=== PATIENT | female | born 1995 | race African-American/Black ===

== ENCOUNTER → 2017-07-13 | Outpatient (CLI) | payer OTHER ==
[~2017-07-13] MED LIST: AMOXICILLIN500 MG PO; BACTRIM DS 8001 TA1 PO; BENADRYL25 MG PO; DEPO PROVER150 MG/M1 IM; MOTRIN800 MG PO; PROAIR HFA0.09 MG/AC INH; ZOFRAN ODT4 MG SL
== END | disposition home or self-care (01) ==
LOC: US 11:00
DX: Z34.80 Encounter for supervision of other normal pregnancy, unspecified trimester (principal); Z3A.08 8 weeks gestation of pregnancy

== ENCOUNTER → 2017-09-05 | Outpatient (CLI) | payer OTHER ==
[2017-09-07 03:06] LABS: AFP VALUE 25.8 ng/mL (.); DIA MOM 1.22 (.); DSR (BY AGE) 1 IN 1159 (.); DSR (SECOND TRIMESTER) 1 IN 763 (.); GEST. AGE ON COLLECTION DATE 16.9 WEEKS (.); GESTATIONAL AGE BASED ON Ultrasound (.); HCG MOM 1.79 (.); HCG VALUE 68353 mIU/mL (.); INSULIN DEPENDENT DIABETES No (.); MATERNAL AGE AT EDD 20.3 YEARS (.); MULTIPLE GESTATION No (.); OSBR RISK 1 IN 10000 (.); T18 RISK Not increased (.); TEST RESULTS *Screen Negative* (.); UE3 MOM 0.96 (.); UE3 VALUE 1.07 ng/mL (.); WEIGHT 120 lbs (.)
== END | disposition home or self-care (01) ==
LOC: LAB 11:19
PROVIDERS: Obstetrics & Gynecology
DX: Z33.1 Pregnant state, incidental (principal)

== ENCOUNTER → 2017-09-24 | Outpatient (CLI) | payer OTHER | END | disposition home or self-care (01) | LOC: US 10:00 | DX: Z34.92 Encounter for supervision of normal pregnancy, unspecified, second trimester (principal); Z3A.19 19 weeks gestation of pregnancy ==

== ENCOUNTER 2018-04-02 14:45 | Emergency (ER) | payer OTHER ==
[~2018-04-02] VITALS: Ht 170.1 cm; Wt 61.2 kg
[2018-04-02 15:25] LABS: BILIRUBIN NEGATIVE (NEGATIVE); BLOOD 3+ (NEGATIVE); CLARITY SL CLOUDY (CLEAR); COLOR YELLOW (YELLOW); GLUCOSE NEGATIVE (NEGATIVE); KETONE TRACE (NEGATIVE); LEUKO ESTERASE TRACE (NEGATIVE); NITRITE NEGATIVE (NEGATIVE); PH 8.5 (5.0-9.0)
[2018-04-02 15:43] LABS: BACTERIA TRACE; RBC 51-100 rbc/hpf (0-2)
[2018-04-02 16:40] LABS: BASO # 0.1 10*3/uL (0.0-0.1); BASO % 0.6 % (0.0-1.0); EOS % 9.4 % (1.0-4.0); HEMATOCRIT 38.6 % (37.0-47.0); HEMOGLOBIN 11.9 g/dl (12.0-16.0); LYMPH # 2.6 10*3/uL (1.3-4.4); LYMPH % 25.6 % (27.0-41.0); MEAN CELL VOLUME 85.2 fl (81.0-99.0); MEAN CORPUSCULAR HGB 26.3 pg (27.0-31.0); MEAN CORPUSCULAR HGB CONC 30.8 g/dl (33.0-37.0); MEAN PLATELET VOLUME 10.6 fl (9.6-12.3); MONO # 0.7 10*3/uL (0.1-1.0); MONO % 6.5 % (3.0-9.0); NEUT # 5.9 10*3/uL (2.3-7.9); NEUT % 57.8 % (47.0-73.0); PLATELET COUNT AUTOMATED 349 10*3/uL (130-400); RED BLOOD COUNT 4.53 10*6/uL (4.10-5.10); RED CELL DISTRI WIDTH 17.4 % (0-14.5); WHITE BLOOD COUNT 10.2 10*3/uL (4.8-10.8)
[2018-04-02 16:55] LABS: ALBUMIN 4.3 gm/dl (3.1-4.5); ALKALINE PHOSPHATASE 84 U/L (45-117); BUN 9 mg/dl (7-24); CHLORIDE 105 mmol/L (98-107); CREATININE 0.98 mg/dL (0.55-1.02); POTASSIUM 3.8 mmol/L (3.5-5.1); SGOT/AST 25 IU/L (3-35); SGPT/ALT 25 U/L (12-78); SODIUM 137 mmol/L (136-145); TOTAL PROTEIN 8.4 gm/dL (6.4-8.2)
[2018-04-02] MEDS ORDERED: Motrin,Rufen800 MG PO (17:13)
== END 2018-04-02 17:17 | disposition home or self-care (01) ==
LOC: ED 14:45
PROVIDERS: Nurse Practitioner
DX: O46.91 Antepartum hemorrhage, unspecified, first trimester (principal); O99.611 Diseases of the digestive system complicating pregnancy, first trimester; K92.89 Other specified diseases of the digestive system; Z3A.01 Less than 8 weeks gestation of pregnancy

== ENCOUNTER → 2018-08-03 | Outpatient (CLI) | payer OTHER ==
[~2018-08-03] MED LIST changes: +Motrin,Rufen800 MG PO
== END | disposition home or self-care (01) ==
LOC: US 13:00
DX: Z34.02 Encounter for supervision of normal first pregnancy, second trimester (principal); Z3A.16 16 weeks gestation of pregnancy

== ENCOUNTER → 2018-12-08 | Outpatient (CLI) | payer OTHER | END | disposition home or self-care (01) | LOC: US 11-21 12:30 | DX: Z34.83 Encounter for supervision of other normal pregnancy, third trimester (principal); Z3A.34 34 weeks gestation of pregnancy ==

== ENCOUNTER → 2018-12-15 | Outpatient (CLI) | payer SELFPAY | END | disposition home or self-care (01) | LOC: US 11:30 | DX: Z34.93 Encounter for supervision of normal pregnancy, unspecified, third trimester (principal); Z3A.36 36 weeks gestation of pregnancy ==

== ENCOUNTER → 2019-08-16 | Outpatient (CLI) | payer OTHER ==
[2019-08-16 16:10] LABS: BASO # 0.1 10*3/uL (0.0-0.1); BASO % 0.4 % (0.0-1.0); EOS # 0.2 10*3/uL (0.0-0.4); EOS % 1.3 % (1.0-4.0); HEMATOCRIT 28.4 % (37.0-47.0); HEMOGLOBIN 8.6 g/dl (12.0-16.0); LYMPH # 1.7 10*3/uL (1.3-4.4); LYMPH % 13.4 % (27.0-41.0); MEAN CELL VOLUME 88.8 fl (81.0-99.0); MEAN CORPUSCULAR HGB 26.9 pg (27.0-31.0); MEAN CORPUSCULAR HGB CONC 30.3 g/dl (33.0-37.0); MEAN PLATELET VOLUME 9.9 fl (9.6-12.3); MONO % 7.7 % (3.0-9.0); NEUT # 9.8 10*3/uL (2.3-7.9); NEUT % 76.1 % (47.0-73.0); PLATELET COUNT AUTOMATED 318 10*3/uL (130-400); RED CELL DISTRI WIDTH 14.2 % (0-14.5); WHITE BLOOD COUNT 12.8 10*3/uL (4.8-10.8)
[2019-08-17 07:05] LABS: HEPATITIS B SURFACE AG Negative (Negative); HEPATITIS C AB <0.1 (0.0-0.9)
[2019-08-17 14:06] LABS: VARICELLA-ZOSTER IGG 096206 180 index (Immune >165)
[2019-08-21 08:01] LABS: HEMOGLOBIN SOLUBILITY Negative
[2019-08-21 08:03] LABS: HEMOGLOBIN A 97.4
[2019-08-21 08:04] LABS: HEMOGLOBIN A2 2.6
== END | disposition home or self-care (01) ==
LOC: LAB 15:03
PROVIDERS: Nurse Practitioner Women's Health
DX: O09.92 Supervision of high risk pregnancy, unspecified, second trimester (principal); Z3A.21 21 weeks gestation of pregnancy

== ENCOUNTER 2021-11-11 18:21 | Emergency (ER) | payer OTHER ==
[~2021-11-11] VITALS: Ht 170.1 cm; Wt 56.7 kg
[2021-11-11 18:59] LABS: BASO # 0.1 10*3/uL (0.0-0.1); BASO % 0.6 % (0.0-1.0); EOS # 0.7 10*3/uL (0.0-0.4); EOS % 7.1 % (1.0-4.0); HEMATOCRIT 41.2 % (37.0-47.0); LYMPH # 2.9 10*3/uL (1.3-4.4); MEAN CELL VOLUME 90.5 fl (81.0-99.0); MEAN CORPUSCULAR HGB 29.9 pg (27.0-31.0); MEAN PLATELET VOLUME 10.1 fl (9.6-12.3); MONO # 0.9 10*3/uL (0.1-1.0); NEUT # 4.9 10*3/uL (2.3-7.9); NEUT % 52.2 % (47.0-73.0); PLATELET COUNT AUTOMATED 336 10*3/uL (130-400); RED BLOOD COUNT 4.55 10*6/uL (4.10-5.10); RED CELL DISTRI WIDTH 12.6 % (0-14.5); WHITE BLOOD COUNT 9.4 10*3/uL (4.8-10.8)
[2021-11-11 19:16] LABS: ALKALINE PHOSPHATASE 69 U/L (45-117); BUN 13 mg/dl (7-24); CHLORIDE 107 mmol/L (98-107); CREATININE 1.09 mg/dL (0.55-1.02); SGOT/AST 14 IU/L (3-35); SGPT/ALT 19 U/L (12-78); SODIUM 139 mmol/L (136-145); TOTAL PROTEIN 7.7 gm/dL (6.4-8.2)
[2021-11-11] MEDS ORDERED: MEDROL DOSEPAK4 MG PO (20:16)
[2021-11-11] MEDS ORDERED: PROVENTIL HFA6.7 GM INH (20:16)
== END 2021-11-11 20:41 | disposition home or self-care (01) ==
LOC: ED 18:21
PROVIDERS: Nurse Practitioner Family
DX: J45.901 Unspecified asthma with (acute) exacerbation (principal); Z20.822 Contact with and (suspected) exposure to COVID-19

== ENCOUNTER 2022-04-26 05:23 | Emergency (ER) | payer OTHER ==
[~2022-04-26] VITALS: Ht 165.1 cm; Wt 72.1 kg
[~2022-04-26 05:23] MED LIST changes: +MEDROL DOSEPAK4 MG PO; +PROVENTIL HFA6.7 GM INH
[2022-04-26 06:56] LABS: BASO # 0.1 10*3/uL (0.0-0.1); BASO % 0.5 % (0.0-1.0); EOS # 0.2 10*3/uL (0.0-0.4); EOS % 1.8 % (1.0-4.0); HEMATOCRIT 39.7 % (37.0-47.0); LYMPH # 1.6 10*3/uL (1.3-4.4); LYMPH % 14.7 % (27.0-41.0); MEAN CELL VOLUME 90.4 fl (81.0-99.0); MEAN CORPUSCULAR HGB 30.5 pg (27.0-31.0); MEAN CORPUSCULAR HGB CONC 33.8 g/dl (33.0-37.0); MEAN PLATELET VOLUME 10.4 fl (9.6-12.3); MONO # 0.8 10*3/uL (0.1-1.0); MONO % 7.9 % (3.0-9.0); NEUT # 7.9 10*3/uL (2.3-7.9); NEUT % 74.8 % (47.0-73.0); PLATELET COUNT AUTOMATED 288 10*3/uL (130-400); RED BLOOD COUNT 4.39 10*6/uL (4.10-5.10); RED CELL DISTRI WIDTH 12.2 % (0-14.5); WHITE BLOOD COUNT 10.6 10*3/uL (4.8-10.8)
[2022-04-26 07:11] LABS: ALKALINE PHOSPHATASE 59 U/L (45-117); BUN 11 mg/dl (7-24); CHLORIDE 112 mmol/L (98-107); SGPT/ALT 36 U/L (12-78); SODIUM 140 mmol/L (136-145); TOTAL PROTEIN 8.1 gm/dL (6.4-8.2)
[2022-04-26 07:21] LABS: ETHYL ALCOHOL < 3.0 mg/dl (<3)
[2022-04-26 07:22] LABS: ACETAMINOPHEN (TYLENOL) < 5.0 ug/ml (10-30)
[2022-04-26 07:23] LABS: POTASSIUM 5.3 mmol/L (3.5-5.1); SGOT/AST 78 IU/L (3-35)
[2022-04-26] MEDS ORDERED: ONDANSETRON HYDR4 M1 PO (09:57)
[2022-04-26 10:31] LABS: BILIRUBIN Negative (Negative); BLOOD 3+ (Negative); CLARITY Turbid (Clear); COLOR Yellow (Yellow); GLUCOSE Negative (Negative); KETONE 1+ (Negative); LEUKO ESTERASE 2+ (Negative); NITRITE Positive (Negative); SPECIFIC GRAVITY >= 1.030 (1.001-1.030)
[2022-04-26 10:39] LABS: URINE AMPHETAMINES < 1000 (1000ng/ml); URINE BARBITURATES < 200 (200ng/ml); URINE BENZODIAZEPINES < 200 (200ng/ml); URINE CANNABINOIDS (THC) > 50 (50ng/ml); URINE COCAINE < 300 (300ng/ml); URINE METHADONE < 300 (300ng/ml); URINE OPIATES < 300 (300ng/ml)
[2022-04-26 10:44] LABS: BACTERIA 4+; EPITHELIAL CELLS 16-20; URINE PHENCYCLIDINE < 25 (25ng/ml); WBC 21-30 wbc/hpf (0-5)
[2022-04-26] MEDS ORDERED: CEFUROXIME AXE500 MG PO (11:38)
== END 2022-04-26 12:16 | disposition home or self-care (01) ==
LOC: ED 05:23
PROVIDERS: Emergency Medicine
DX: N39.0 Urinary tract infection, site not specified (principal); F19.90 Other psychoactive substance use, unspecified, uncomplicated